=== PATIENT | male | born 1990 | race African-American/Black ===

== ENCOUNTER 2017-06-10 16:04 | Emergency (ER) | payer OTHER ==
[~2017-06-10] VITALS: Ht 167.6 cm; Wt 68.0 kg
--- NOTE | ~2017-06-10 | CT2 ---
[facility] A Service of [facility] RADIOLOGY TEXT RESULTS PATIENT: SALUD SIGALA LOCATION: [facility] : [birth year] UNIT #: [id number] AGE: [address]: Erwin Morejon DO SEX: M ORDER DR: [id number] [facility] [address] [place], [place] [address] [id number] E MR#: [id number] Acc #: [id number] NAME: SALUD SIGALA : 1990 SEX: M STUDY DATE/TIME: 06/10/2017 19:36 UNIT: [facility] ROOM: STUDY DESCRIPTION: CT Abd and Pelv W Cont Attending Physician: Erwin Morejon D.O. Ordering Physician: Erwin Morejon D.O. Primary Care Physician: [facility] MEDICAL IMAGING REPORT This report is preliminary unless electronic signature is present EXAM CT of the abdomen and pelvis with contrast dated 06/10/2017 COMPARISON None. HISTORY Upper abdominal pain for [address] exam was performed with one or more of the following radiation dose reduction techniques: automatic control, adjustment of mA and/or kV according to patient size, and iterative reconstruction. FINDINGS CT of the abdomen and pelvis and pelvis were obtained with IV contrast in the axial plane followed by sagittal and coronal reformats. LOWER CHEST: Lungs are well aerated. Heart is of normal size. ABDOMEN: Liver, gallbladder, kidneys, adrenal glands, spleen, pancreas are within normal limits. No evidence of bowel obstruction, free fluid or free air intraperitoneally. There is mild to moderate stool burden in the colon with a large fecal ball in the rectosigmoid portion. No drainable abscess, free fluid or free air is seen. No evidence of aortic aneurysm, dissection or significant lymphadenopathy. Degenerative disc disease is noted in the lumbar spine particularly at L4-5. IMPRESSION 1. No demonstrable acute abnormality of the abdomen or pelvis. [facility] A Service of [facility] RADIOLOGY TEXT RESULTS PATIENT: SALUD SIGALA LOCATION: [place] : [birth year] UNIT #: [id number] AGE: [address]: Erwin Morejon DO SEX: M ORDER DR: 2. Degenerative disc disease is noted in the lumbar spine particularly at L4-5. Dictated by... Cindy Rivas M.D. THIS IS AN ELECTRONICALLY VERIFIED REPORT Cindy Rivas M.D. at 06/12/2017 7:32 PM CPR/rnr TD: 06/11/2017 05:05 JOB #: [id number] MEDICAL IMAGING REPORT Page 1 of 1 COPY
[2017-06-10 18:44] LABS: URINE SOURCE CLEAN CATCH
[2017-06-10 18:47] LABS: URINE APPEARANCE CLEAR; URINE BILIRUBIN NEG (NEG); URINE BLOOD NEG (NEG); URINE COLOR YELLOW; URINE GLUCOSE NEG (NEG); URINE KETONE NEG (NEG); URINE LEUKOCYTE ESTERASE TRACE (NEG); URINE NITRATE NEG (NEG); URINE PROTEIN 1+ (NEG); URINE SPECIFIC GRAVITY 1.022 (1.003-1.035)
[2017-06-10 18:48] LABS: BASOPHIL% 0.3 % (0-2.5); EOSINOPHIL# 0.3 X10e3 (0-0.7); EOSINOPHIL% 5.1 % (0.0-7.0); HEMATOCRIT 48.5 % (38.0-50.0); HEMOGLOBIN 16.2 gm/dL (13.0-16.0); LYMPHOCYTE# 1.1 X10e3 (1.0-3.5); MEAN CELL VOLUME 95.5 FL (83-96); MEAN CORPUSCULAR HEMOGLOBIN 31.8 PG (28-34); MEAN CORPUSCULAR HGB CONC 33.4 g/dL (30-36); MEAN PLATELET VOLUME 8.2 FL (6.5-11.5); MONOCYTE# 0.3 X10e3 (0-1.0); MONOCYTE% 6.3 % (3.0-12.0); NEUTROPHIL# 3.6 X10e3 (1.5-7.1); NEUTROPHIL% 67.3 % (40-75); PLATELET COUNT 170 X10e3 (140-420); RED BLOOD COUNT 5.08 X10e (3.90-5.60); RED CELL DISTRIBUTION WIDTH 13.4 % (11.0-15.5); WHITE BLOOD COUNT 5.3 X10e3 (4.0-10.5)
[2017-06-10 18:49] LABS: DIFF IND NO
[2017-06-10 18:50] LABS: URBCS1 AUWI 0-2 /[HPF] (0-2); URINE BACTERIA AUWI NEG (NEGATIVE); URINE SQUAMOUS EPITHELIAL CELL NONE SEEN /[HPF]
[2017-06-10 19:00] LABS: CULTURE INDICATED? NO
[2017-06-10 19:07] LABS: ALBUMIN SERUM 4.3 g/dL (3.5-5.0); ALKALINE PHOSPHATASE 41 U/L (32-92); ALT (SGPT) 21 U/L (10-40); AST (SGOT) 19 U/L (10-42); BILIRUBIN,TOTAL 0.8 mg/dL (0.2-2.0); BLOOD UREA NITROGEN 9 mg/dL (9-23); BUN/CREATININE RATIO 8.18; CALCIUM SERUM 8.9 mg/dL (8.4-10.2); CARBON DIOXIDE 29 mmol/L (22-31); CHLORIDE 102 mmol/L (100-111); CREATININE SERUM 1.1 mg/dL (0.6-1.4); GLOM FILT RATE Estimated 104.6 mL/min (>60); GLUCOSE FASTING 73 mg/dL (70-110); LIPASE 23 U/L (22-51); POTASSIUM 4.1 mmol/L (3.5-5.1); PROTEIN TOTAL SERUM 7.5 g/dL (6.0-8.3); SODIUM 137 mmol/L (135-145)
[2017-06-10 19:09] LABS: BILIRUBIN, DIRECT <0.1 mg/dL (0.0-0.2); BILIRUBIN,INDIRECT 0.7 mg/dL (0.0-0.9)
== END 2017-06-10 20:35 | disposition home or self-care (01) ==
LOC: CED 16:04
PROVIDERS: Emergency Medicine
DX: R10.9 Unspecified abdominal pain (principal); R11.2 Nausea with vomiting, unspecified; R19.7 Diarrhea, unspecified
CPT/HCPCS: 36415; 74177; 80048; 80076; 81003; 83690; 85025; 96361; 96374; 99284; J2405; Q9967